=== PATIENT | male | born 1995 | race Caucasian/White ===

== ENCOUNTER 2017-04-15 11:57 | Emergency (ER) | payer SELFPAY ==
[2017-04-15 12:12] VITALS: BP 135/44; PULSE 62; RESP 16; TEMP 98.4; O2SAT 96
--- NOTE | 2017-04-15 13:46 | EDPHY ---
H & P Stated Complaint: BLEEDING OUT OF R EAR, NOW UNABLE TO HEAR FROM R EAR Time Seen by Provider: 04/15/17 13:46 - Personal History Current Tetanus Diphtheria and Acellular Pertussis (TDAP): Unsure - Medical/Surgical History Hx Asthma: Yes Hx Chronic Respiratory Disease: No Hx Diabetes: No Hx Cardiac Disease: No Hx Renal Disease: No Hx Cirrhosis: No Hx Alcoholism: No Hx HIV/AIDS: No Hx Splenectomy or Spleen Trauma: No Other PMH: ASTHMA - Social History Smoking Status: Current every day smoker Constitutional: Initial Vital Signs Temperature (C) 36.9 C 04/15/17 12:09 Heart Rate 62 04/15/17 12:09 Respiratory Rate 16 04/15/17 12:09 Blood Pressure 135/44 H 04/15/17 12:09 O2 Sat (%) 96 04/15/17 12:09 O2 Delivery Mode Room Air Allergies/Adverse Reactions: No Known Allergies Allergy (Unverified 04/15/17 12:13) Home Medications: Medication Instructions Recorded NK [No Known Home Meds] 04/15/17 Medical Decision Making ED Course/Re-evaluation: CHIEF COMPLAINT: Right ear issue HISTORY OF PRESENT ILLNESS: 21 y/o male presents with right-sided hearing loss and tinnitus onset two weeks ago and possible infection symptoms beginning last week. Last night, his ear began to feel plugged and he noted blood on his pillow. He has noted purulent drainage from the ear as well. He denies any recent swimming. No recent trauma. He has no further complaints. REVIEW OF SYSTEMS: A 10 point review of systems was performed and is negative with the exception of the elements mentioned in the history of present illness. PHYSICAL EXAM: HR, BP, O2 Sat, RR. Temp noted General Appearance: Alert, well hydrated, appropriate, and non-toxic appearing. Head: Atraumatic without scalp tenderness or obvious injury Eyes: Pupils equal, round, reactive to light and accommodation, EOMI, no trauma , no injection. Ears: Cerumen impactions bilaterally. No perforation, normal landmarks Nose: Atraumatic, no rhinorrhea, clear. Throat: There is no erythema or exudates, no lesions, normal tonsils, mucus membranes moist. Neck: Supple, 2+ carotid upstroke, nontender, no lymphadenopathy. Respiratory: No retractions, no distress, no wheezes, and no accessory muscle use. Lungs are clear to auscultation bilaterally. Cardiovascular: Regular rate and rhythm, no murmurs, rubs, or gallops. Bilateral carotid, radial, dorsalis pedis, and posterior tibial pulses intact. Good capillary refill all extremities. Gastrointestinal: Abdomen is soft, nontender, non-distended, no masses, no rebound, no guarding, no peritoneal signs. Musculoskeletal: Normal active ROM of all extremities, atraumatic. Neurological: Alert, appropriate, and interactive. The patient has normal DTRs and non-focal cranial nerves, motor, sensory, and cerebellar exam. Skin: No rashes, good turgor, no nodules on palpation. Past medical history: Denies Past surgical history: Noncontributory Family history: Noncontributory Social history: Student. Lives in [place]. Single. DIFFERENTIAL DIAGNOSIS: Includes but not limited to cerumen impaction, otitis externa, otitis media, inner ear disturbances, acoustic neuroma. MEDICAL DECISION MAKIN21 y/o male presents with right-sided tinnitus and hearing loss. Exam reveals bilateral cerumen impactions. Plan for irrigation. Reassessed patient. He is feeling improved after irrigation. His hearing has returned. Reexamined the ear. Visualized tympanic membrane. There is no evidence of infection. Plan to discharge home in good condition. Follow up and return precautions discussed. The patient is comfortable with this plan. Departure - Departure Disposition: Home, Routine, Self-Care Clinical Impression: Impacted cerumen of both ears Condition: Good Instructions: Cerumen Impaction (ED) Additional Instructions: You can purchase Debrox, Cerumenex, or other similar [id number] earwax irrigation kit for future relief of symptoms. Follow up with your primary care provider for continued concerns. Return to the emergency department for increased pain, drainage, or redness in your ear or if you develop fever or other worsening of condition. Referrals: Naheed Sesay MD [Medical Doctor] - As per Instructions Report Scribed for: Truong Quezada Report Scribed by: Johanny Cullen Date of Report: 04/15/17 Time of Report: 15:02
[2017-04-15] MEDS ORDERED: HYDROGEN PEROXIDE 236 ML BOTTLE TP ONE (14:21)
== END 2017-04-15 15:03 | disposition home or self-care (01) ==
PROC: 3E1B78Z Irrigation of Ear using Irrigating Substance, Via Natural or Artificial Opening (ICD-10-PCS; principal; 2017-04-15)
DX: H61.23 Impacted cerumen, bilateral (principal); J45.909 Unspecified asthma, uncomplicated; F17.200 Nicotine dependence, unspecified, uncomplicated